=== PATIENT | female | born 1950 | race Caucasian/White ===

== ENCOUNTER 2023-07-10 22:57 | Emergency (ER) | payer MEDICARE, MEDICAID, SELFPAY ==
[2023-07-10 23:06] VITALS: BP 148/75; PULSE 90; RESP 15; TEMP 36.8; O2SAT 96; BMI 28.0
--- NOTE | 2023-07-10 23:22 | XR_ITS ---
PROCEDURE INFORMATION: Exam: XR Left Knee Exam date and time: 07/11/2023 12:03 AM Age: 73 years old Clinical indication: Pain; Knee; Left; Additional info: Fall pain TECHNIQUE: Imaging protocol: Radiologic exam of the left knee. Views: 3 views. COMPARISON: CR XR TIBIA FIBULA LT 2V 07/11/2023 12:03 AM FINDINGS: Bones/joints: Status post total knee arthroplasty. The patient is status post patellar resurfacing. Soft tissues: Normal. IMPRESSION: Postsurgical changes without acute injury or hardware abnormality.
--- NOTE | 2023-07-10 23:22 | CT_ITS ---
PROCEDURE INFORMATION: Exam: CT Cervical Spine Without Contrast Exam date and time: 07/11/2023 12:03 AM Age: 73 years old Clinical indication: Neck pain; Additional info: Fall neck pain TECHNIQUE: Imaging protocol: Computed tomography of the cervical spine without contrast. Radiation optimization: All CT scans at this facility use at least one of these dose optimization techniques: automated exposure control; mA and/or kV adjustment per patient size (includes targeted exams where dose is matched to clinical indication); or iterative reconstruction. REPORTING DATA: Count of CT and Cardiac NM exams in prior 12 months: This patient has received 0 known CTs and 0 known cardiac nuclear medicine studies in the 12 months prior to the current study. COMPARISON: CT HEAD/BRAIN WO CON 07/11/2023 12:01 AM FINDINGS: Bones/joints: No acute fracture identified. Anterior fusion of the mid and lower C-spine with anterior plate and screw fixation and interbody spacers at the C4-C5 through C6-C7 levels. Advanced multilevel degenerative disc disease noted. Vertebral body heights are intact. Bulging disc spur complexes at multiple levels with moderate central canal narrowing identified at the C4-C5 through C6-C7 levels. Azqxosji-[id number] foramina narrowing noted on the right at C3-C4 and on the left at C4-C5 and C5-C6 and C6-C7 with milder foramina narrowing at some of the other foramina. Lungs: Lung apices are normal. Soft tissues: Unremarkable. IMPRESSION: Postop and degenerative changes. No acute abnormality.
--- NOTE | 2023-07-10 23:22 | XR_ITS ---
PROCEDURE INFORMATION: Exam: XR Left Tibia and Fibula Exam date and time: 07/11/2023 12:03 AM Age: 73 years old Clinical indication: Pain; Lower leg; Left; Additional info: Fall pain TECHNIQUE: Imaging protocol: Radiologic exam of the left tibia and fibula. Views: 2 views. COMPARISON: CR XR KNEE LT 3V 07/11/2023 12:03 AM FINDINGS: Bones/joints: Status post total knee arthroplasty. There is a plantar calcaneal enthesophyte. Soft tissues: Normal. IMPRESSION: Postsurgical changes without acute injury or hardware abnormality.
--- NOTE | 2023-07-10 23:23 | CT_ITS ---
PROCEDURE INFORMATION: Exam: CT Head Without Contrast Exam date and time: 07/11/2023 12:01 AM Age: 73 years old Clinical indication: Pain; Other: Fall; Additional info: Fall head trauma TECHNIQUE: Imaging protocol: Computed tomography of the head without contrast. Radiation optimization: All CT scans at this facility use at least one of these dose optimization techniques: automated exposure control; mA and/or kV adjustment per patient size (includes targeted exams where dose is matched to clinical indication); or iterative reconstruction. REPORTING DATA: Count of CT and Cardiac NM exams in prior 12 months: This patient has received 0 known CTs and 0 known cardiac nuclear medicine studies in the 12 months prior to the current study. COMPARISON: No relevant prior studies available. FINDINGS: Brain: No intracranial hemorrhage. Generalized atrophic changes of the ventricles and subarachnoid spaces. Chronic small-vessel ischemic changes noted. No mass, mass effect or midline shift. Intracranial atherosclerotic changes are noted. Cerebral ventricles: See Brain finding. Paranasal sinuses: Visualized sinuses are unremarkable. No fluid levels. Mastoid air cells: Visualized mastoid air cells are well aerated. Bones/joints: See Soft tissues finding. Soft tissues: Mild scalp soft tissue swelling adjacent to the anterior left frontal bone region. No underlying fracture. IMPRESSION: 1. Mild scalp soft tissue swelling anterior to left frontal bone. 2. No acute intracranial abnormality. Chronic changes as above.
--- NOTE | 2023-07-10 23:31 | [facility].EDGENADL ---
Discharge Plan Disposition Patient Disposition: Home, Self-Care Referrals Follow up/Referrals: Provider,Referral, MD [Primary Care Provider] - See instructions Activity Restrictions/Add. Instructions Additional Instructions/Restrictions: Please follow-up with your primary care provider. Please return to the emergency department if you develop any new or worsening symptoms or become concerned for your health. Clinical Impressions Clinical Impression: Fall, Hematoma and contusion Discharge ED Provider: Enrique Reid Adult HPI General Chief complaint: Fall Stated complaint: AO 07/10 fall, knot on forehead Time Seen by Provider: 07/10/23 23:00 Mode of Arrival: Family Vehicle Source of Information: Patient and Relative Limitations: No Limitations Description of Symptoms (Recalled from ER Triage Doc. by RN): 73 yo female presents with CC of s/p fall with injury to left front head and left knee. Noted a swollen,knot-like area to left front head, abrasions and swelling to left knee. Mentioned her elbow was hurting but no obvious deformity. Patient takes aspirin daily. Both report history of vertigo. Utilizes assistive device for ambulation. History of Present Illness HPI narrative: 73-year-old female on no medications presents with head trauma and left knee pain. She reports that she tripped and fell while leaving [facility] earlier today. She struck her head and has a left head hematoma. She did not lose consciousness. She reports acute on chronic right sided neck pain, reports history of spinal fusion in the neck. She also reports left upper tib-fib/knee pain, reports history of bilateral knee replacements. Related Data Allergies Allergy/AdvReac Type Severity Reaction Status Date / Time No Known Allergies Allergy Verified 07/10/23 23:33 [facility] Disclaimer: The information contained in this section may have been updated after the patient was seen, as this information can be updated by other users. Social History Smoking Status: Unknown if ever smoked alcohol intake: never current occupational status: retired Travel in the last 8 weeks: None ROS Obtained: Yes All systems reviewed & no additional complaints except as documented Physical Exam General General appearance: alert and in no apparent distress Head Head exam: normocephalic and other (6 small left forehead hematoma) Eye Eye exam: Present normal appearance, PERRL and EOMI ENT ENT exam: Present normal oropharynx and normal external ear exam Neck Neck exam: Present normal inspection, full ROM and tenderness (Right paraspinal) Chest Chest inspection: Present normal inspection and symmetric chest wall rise; Absent tenderness Respiratory Respiratory exam: Present normal lung sounds bilaterally; Absent respiratory distress Cardiovascular Cardiovascular exam: Present regular rate and normal rhythm Abdominal Exam Abdominal exam: Present soft; Absent distention, tenderness or guarding Extremities Exam Extremities exam: Present other (Tenderness to the left tib-fib/knee, no other extremity tenderness noted) Back Exam Back exam: Present normal inspection; Absent tenderness Neurological Exam Neurological exam: Present alert and oriented X3; Absent motor sensory deficit Psychiatric Psychiatric exam: Present normal affect and normal mood Skin Skin exam: Present warm, dry and normal color Lymphatic Lymphatic Findings: no adenopathy Medical Decision Making Medical Records Medical records reviewed: Yes I reviewed the patient's medical records. Josué Inquiry Pt receiving controlled substance: No Josué was queried for this patient: No Vital Signs: 07/10/23 23:06 07/11/23 01:51 07/11/23 00:30 Temperature 98.2 F 98 F Temperature Source Oral Oral Pulse Rate 87 82 Pulse Rate [Right Brachial] 90 Respiratory Rate 15 18 18 Blood Pressure 148/83 H 141/80 H Blood Pressure [Right Arm] 148/75 H Blood Pressure Mean 94 Blood Pressure Kanwal
--- NOTE | 2023-07-10 23:54 | PC.NURSE ---
patient sitting on bed, family at bedside
[2023-07-11 00:30] VITALS: BP 141/80; PULSE 82; RESP 18; O2SAT 94
[2023-07-11 01:30] VITALS: BP 148/83; PULSE 81; RESP 18; O2SAT 95
[2023-07-11 01:51] VITALS: BP 148/83; PULSE 87; RESP 18; TEMP 36.6; O2SAT 99
== END 2023-07-11 01:57 | disposition home or self-care (01) ==
PROVIDERS: Emergency Provider Emergency Medicine
DX: S00.93XA Contusion of unspecified part of head, initial encounter (principal); S80.212A Abrasion, left knee, initial encounter; M54.2 Cervicalgia; Z79.82 Long term (current) use of aspirin; W01.0XXA Fall on same level from slipping, tripping and stumbling without subsequent striking against object, initial encounter
CPT/HCPCS: 70450; 72125; 73562; 73590; 99285